=== PATIENT | female | born 1975 | race Caucasian/White ===

== ENCOUNTER 2019-08-03 21:14 | Emergency (ER) | payer MEDICAID, OTHER ==
[~2019-08-03] VITALS: Ht 166 cm; Wt 69.3 kg
--- NOTE | 2019-08-03 22:32 | ED Chest Pain ---
General Chief Complaint: Chest Pain Stated Complaint: CHEST AND BACK PAIN Nursing Triage Note: PT COMPLAINING OF A BURNING PAIN IN HER CHEST. PT STATES SHE HAS BEEN HAVING ISSUES WITH ACID REFLUX RECENTLY Nursing Sepsis Screen: No Definite Risk Source: patient History of Present Illness Date Seen by Provider: Aug 03, 2019 Time Seen by Provider: 22:31 Initial Comments 43-year-old female presenting with complaints of burning pain in her epigastric area radiating up into her chest. She states that this is been worse in the last several days. She has more pain when she lays down at night. She has increased pain with eating as well. She has pain going up into her right shoulder blade at times. She she will wake up with wheezing and shortness of breath and cough at night as well. She does take ranitidine which helps some. She was concerned about the increased burning in her chest and epigastric area and wanted to be evaluated tonight. She wasn't sure if this was all heartburn or something more going on. She denies any pressure in her chest or radiation into her neck. She has no known cardiac history. She does have a history of asthma and has tried her inhaler with little to no relief. Allergies and Home Medications Allergies Coded Allergies: Penicillins (Verified Allergy, Unknown, 08/04/19) amoxicillin (Verified Allergy, Unknown, 08/04/19) cephalexin (Verified Allergy, Unknown, 08/04/19) codeine (Verified Allergy, Unknown, 08/04/19) sulfamethoxazole (Verified Allergy, Unknown, 08/04/19) trimethoprim (Verified Allergy, Unknown, 08/04/19) Home Medications Pantoprazole Sodium 40 Mg Tablet.dr, 40 MG PO DAILY Prescribed by: REGGIE BHARDWAJ on 08/03/19 8958 Patient Home Medication List Home Medication List Reviewed: Yes Review of Systems Review of Systems Constitutional: No chills, No dizziness, No fever, No malaise EENTM: No Symptoms Reported Respiratory: Cough (especially at night when she wakes up with the burning going up into her chest), Wheezing Cardiovascular: Chest Pain (burning pain from her epigastric area going up into her chest); Denies Edema, Denies Palpitations, Denies Syncope Gastrointestinal: Denies Abdomen Distended; Abdominal Pain (burning epigastric pain); Denies Blood Streaked Stools, Denies Constipated, Denies Diarrhea; Nausea; Denies Vomiting Genitourinary: No Symptoms Reported Musculoskeletal: no symptoms reported Skin: no symptoms reported Psychiatric/Neurological: Anxiety Endocrine: No Symptoms Reported Past [id number] Hx Past Med/Social Hx: Reviewed Nursing Past Med/Soc Hx Patient Social History Alcohol Use: Denies Use Recreational Drug Use: No Smoking Status: Former Smoker 2nd Hand Smoke Exposure: No Recent Foreign Travel: No Contact w/Someone Who Travel: No Recent Infectious Disease Expo: No Recent Hopitalizations: No Physical Abuse: No Sexual Abuse: No Mistreated: No Past Medical History Surgeries: No Respiratory: Yes Asthma Cardiac: No Neurological: No Genitourinary: No Gastrointestinal: Yes Gastroesophageal Reflux Musculoskeletal: No Endocrine: No HEENT: No Cancer: No Psychosocial: No Integumentary: No Blood Disorders: No Physical Exam Vital Signs Vital Signs - First Documented 08/03/19 21:15 Temp 36.7 Pulse 74 Resp 20 B/P (MAP) 145/95 (112) Pulse Ox 100 O2 Delivery Room Air Capillary Refill : Less Than 3 Seconds Height, Weight, BMI Height: '" Weight: lbs. oz. kg; 25.00 BMI Method: General Appearance: No Apparent Distress, WD/WN, Anxious HEENT: PERRL/EOMI, Normal ENT Inspection, Pharyngeal Erythema Neck: Full Range of Motion, Normal Inspection, Non Tender, Supple; No Carotid Bruit Respiratory: Chest Non Tender, Lungs Clear, Normal Breath Sounds, No Accessory Muscle Use, No Respiratory Distress Cardiovascular: Regular Rate, Rhythm, No Murmur, Normal Peripheral Pulses Gastrointestinal: Normal Bowel Sounds, No Pulsatile Mass, Soft, Tenderness (mild epigastric tenderness) Extremity: Normal Capillary Refill, Non Tender, No Calf Tenderness, No Pedal Edema Neurologic/Psychiatric: Alert, Oriented x3, 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-XII Norm as Tested Skin: Normal Color, Warm/Dry Progress/Results/Core Measures Results/Orders My Orders Orders - REGGIE BHARDWAJ MD Lidocaine 2% Viscous 15 Ml (Xylocaine Vi (08/03/19 23:00) Antacid Suspension (Mylanta Suspension (08/03/19 23:00) Pantoprazole Tablet (Protonix Tablet) (08/03/19 23:17) Ekg Tracing (08/03/19 21:30) Medications Given in ED Vital Signs/I&O 08/03/19 08/03/19 21:15 23:29 Temp 36.7 Pulse 74 78 Resp 20 18 B/P (MAP) 145/95 (112) 143/91 Pulse Ox 100 98 O2 Delivery Room Air Room Air Blood Pressure Mean: 112 Progress Progress Note : Progress Note Electrocardiogram does not demonstrate any acute ST elevation. Her physical exam was benign other than having epigastric tenderness. She was describing burning pain and so a GI cocktail was ordered. She states that that did resolve her pain. I did discuss with her that without doing blood work I could not rule out 100% that there was any cardiac source or GI source such as gallbladder issues that the patient wanted to wait and do blood work with her primary doctor in [place]. Will order Protonix here and prescription to continue home so that she has something stronger than just ranitidine. Counseled on GERD and esophageal spasms. Stressed importance of follow-up with her primary and that she may need further lab work and testing as well as possible EGD to look for ulcers or ult rasound workup to look for gallbladder disease. Advised if she has worsening pain or other symptoms to seek medical care in case she was having cardiac problems but the initial testing, exam, and history so far points more towards GI source for her symptoms. Initial ECG Impression Date: Aug 03, 2019 Initial ECG Impression Time: 21:28 Initial ECG Rate: 76 Initial ECG Rhythm: Normal Sinus Initial ECG Comparisson: No Previous ECG Available Comment Normal sinus rhythm with a heart rate of 76 bpm. NM interval 152 ms. Borderline left axis deviation. QT interval 394 ms. QT corrected interval 444 ms. There is no acute ST elevation. There is no prior tracing available for comparison. Departure Impression Primary Impression: GERD with esophagitis Additional Impression: Diffuse esophageal spasm Disposition: 01 HOME, SELF-CARE Condition: Stable Departure-Patient Inst. Decision time for Depature: 23:21 Referrals: NO,LOCAL PHYSICIAN (PCP) Primary Care Physician Patient Instructions: Acid Reflux (Gastroesophageal Reflux Disease), Adult (DC), Chest Pain That Is Not Caused by the Heart (DC) Add. Discharge Instructions: Try the proton pump inhibitor medicine for your reflux and heart burn. check with your doctor in [place] and they may need to do blood work or testing to look for your gallbladder as a source of the problem or for ulcers. All discharge instructions reviewed with patient and/or family. Voiced understanding. Scripts Pantoprazole Sodium (Pantoprazole Sodium) 40 Mg Tablet. 40 MG PO DAILY for GERD for 30 Days, #30 TAB 0 Refills Prov: REGGIE BHARDWAJ MD 08/03/19 REGGIE BHARDWAJ MD Aug 03, 2019 22:32
[2019-08-03] MEDS ORDERED: ANTACID SUSP 30 ML UDC (MYLANTA) PO ONE (23:00)
[2019-08-03] MEDS ORDERED: LIDOCAINE 2% VISCOUS 15 ML UDC PO ONE (23:00)
[2019-08-03] MEDS ORDERED: PANTOPRAZOLE 40 MG (PROTONIX) TAB PO STA (23:17)
[2019-08-03] MEDS ORDERED: PANT40TA3 PO (23:23)
[2019-08-03 23:29] VITALS: BP 143/91
== END 2019-08-03 23:30 | disposition home or self-care (01) ==
LOC: ER FS 21:15
DX: K21.0 Gastro-esophageal reflux disease with esophagitis (principal); K22.4 Dyskinesia of esophagus; J45.909 Unspecified asthma, uncomplicated; Z87.891 Personal history of nicotine dependence
CPT/HCPCS: 93005